=== PATIENT | female | born 1995 | race Hispanic/Latino ===

== ENCOUNTER 2019-09-22 11:58 | Emergency (ER) | payer OTHER ==
[2019-09-22 13:07] LABS: RAPID GROUP A STREP NEGATIVE (NEGATIVE)
== END 2019-09-22 16:05 | disposition home or self-care (01) ==
LOC: EDH 11:58
DX: J18.9 Pneumonia, unspecified organism (principal); Z88.8 Allergy status to other drugs, medicaments and biological substances
CPT/HCPCS: 71046; 81025; 87804; 87880

== ENCOUNTER 2019-09-23 11:52 | Inpatient (IN) | payer OTHER ==
[~2019-09-23] VITALS: Ht 162.6 cm; Wt 80.9 kg
[2019-09-23 12:36] LABS: BASOPHILS % (AUTO) 0.3 % (0.0-5.0); EOSINOPHILS % (AUTO) 0.2 % (0.0-8.0); HEMATOCRIT 36.2 % (36-48); LYMPHOCYTES % (AUTO) 7.4 % (21.0-51.0); MEAN CORPUSCULAR HEMOGLOBIN 28.7 pg (27.0-33.0); MEAN CORPUSCULAR HGB CONC 35.4 g/dL (32.0-36.0); MEAN CORPUSCULAR VOLUME 81.2 fL (79-99); MONOCYTES % (AUTO) 3.7 % (3.0-13.0); NEUTROPHILS % (AUTO) 87.4 % (40.0-77.0); PLATELET COUNT (AUTO) 41 K/uL (130-400); RED BLOOD CELL COUNT(AUTO) 4.46 MIL/uL (4.00-5.50); RED CELL DISTRIBUTION WIDTH 12.6 % (11.0-15.5); WHITE BLOOD COUNT (AUTO) 17.4 K/uL (4.8-10.8)
[2019-09-23 12:39] LABS: APPEARANCE,URINE Turbid (CLEAR); BILIRUBIN,URINE Moderate (NEGATIVE); COLOR,URINE Dark Yellow (YELLOW); GLUCOSE, URINE (UA) 500 mg/dL (NEGATIVE); KETONES,URINE Negative (NEGATIVE); LEUKOCYTE ESTERASE ,URINE Small (NEGATIVE); NITRATE,URINE Negative (NEGATIVE); OCCULT BLOOD,URINE Moderate (NEGATIVE); PROTEIN,URINE 300 mg/dL (NEGATIVE)
[2019-09-23 12:48] LABS: AMPHET/METH SCREEN,URINE NEGATIVE (NEGATIVE); BARBITURATE SCREEN, URINE NEGATIVE (NEGATIVE); BENZODIAZEPINES SCREEN,URINE NEGATIVE (NEGATIVE); CANNABINOID SCREEN,URINE NEGATIVE (NEGATIVE); COCAINE SCREEN,URINE NEGATIVE (NEGATIVE); OPIATE SCREEN,URINE NEGATIVE (NEGATIVE); PHENCYCLIDINE SCREEN,URINE NEGATIVE (NEGATIVE)
[2019-09-23 12:49] LABS: INR 1.02 (0.85-1.15); PARTIAL THROMBOPLASTIN TIME 36.5 SEC (26.3-35.5)
[2019-09-23 12:52] LABS: ALANINE AMINOTRANSFERASE 122 U/L (12-78); ALBUMIN 2.5 g/dL (3.5-5.0); ASPARTATE AMINOTRANSFERASE 101 U/L (10-37); BILIRUBIN,TOTAL 4.8 mg/dL (0.2-1.0); CARBON DIOXIDE 18 mmol/L (21-32); CREATINE KINASE, TOTAL 117 U/L (21-232); GLOMERULAR FILTR. RATE CALC 6 mL/min (>60); GLUCOSE,RANDOM 140 mg/dL (70-105); LIPASE 184 U/L (114-286); POTASSIUM 3.7 mmol/L (3.5-5.1); SODIUM SERUM 130 mmol/L (136-145); TOTAL PROTEIN, SERUM 6.9 g/dL (6.0-8.3)
[2019-09-23 12:53] LABS: ALCOHOL, BLOOD < 3 mg/dL (0-10)
[2019-09-23 12:55] LABS: CHLORIDE 89 mmol/L (101-111); CREATININE 8.7 mg/dL (0.5-1.5); UREA NITROGEN, BLOOD 98 mg/dL (7-18)
[2019-09-23 13:16] LABS: PLATELET MORPHOLOGY COMMENT MARKED DECREASE
[2019-09-23 13:19] LABS: BACTERIA,URINE Moderate /HPF (None Seen); WBC,URINE 26-50 /HPF (0-1)
[2019-09-23 13:20] LABS: AMORPHOUS SEDIMENT,UR Moderate /LPF (None Seen); TRANSITIONAL EPI CELLS,URINE Moderate /HPF (None Seen)
[2019-09-23 13:22] LABS: ALBUMIN 2.2 g/dL (3.5-5.0); BILIRUBIN,TOTAL 4.4 mg/dL (0.2-1.0); POTASSIUM 3.5 mmol/L (3.5-5.1); TOTAL PROTEIN, SERUM 6.2 g/dL (6.0-8.3)
[2019-09-23 13:25] LABS: CREATININE 8.3 mg/dL (0.5-1.5)
[2019-09-23 13:26] LABS: BASOPHILS % (AUTO) 0.2 % (0.0-5.0); EOSINOPHILS % (AUTO) 0.3 % (0.0-8.0); LYMPHOCYTES % (AUTO) 6.5 % (21.0-51.0); MEAN CORPUSCULAR HEMOGLOBIN 28.8 pg (27.0-33.0); MEAN CORPUSCULAR HGB CONC 35.2 g/dL (32.0-36.0); MEAN CORPUSCULAR VOLUME 81.9 fL (79-99); MONOCYTES % (AUTO) 2.6 % (3.0-13.0); NEUTROPHILS % (AUTO) 89.5 % (40.0-77.0); PLATELET COUNT (AUTO) 41 K/uL (130-400); RED BLOOD CELL COUNT(AUTO) 4.03 MIL/uL (4.00-5.50); RED CELL DISTRIBUTION WIDTH 12.7 % (11.0-15.5); WHITE BLOOD COUNT (AUTO) 14.1 K/uL (4.8-10.8)
[2019-09-23] MEDS ORDERED: CEFTRIAXONE SODIUM 2 GM VIAL ONE (14:17)
[2019-09-23] MEDS ORDERED: SODIUM CHLORIDE 0.9% 100 ML IV ONE (14:17)
[2019-09-23] MEDS ORDERED: LACTULOSE 20 GM/30 ML UDCUP PO PRN (17:00)
[2019-09-23] MEDS: AZITHROMYCIN 500MG+NS 250ML 250 ML IV SCH (17:00)
[2019-09-23] MEDS ORDERED: ACETAMINOPHEN 325 MG TAB PO PRN (17:00)
[2019-09-23] MEDS ORDERED: ONDANSETRON HCL 4 MG/2 ML VIAL ONE (17:25)
[2019-09-23 17:42] LABS: ALBUMIN 2.3 g/dL (3.5-5.0); BILIRUBIN,TOTAL 4.5 mg/dL (0.2-1.0); POTASSIUM 3.6 mmol/L (3.5-5.1); TOTAL PROTEIN, SERUM 6.5 g/dL (6.0-8.3)
[2019-09-23 17:45] LABS: CREATININE 8.4 mg/dL (0.5-1.5)
[2019-09-23] MEDS: CEFTRIAXONE SODIUM 2 GM VIAL IVP SCH (18:00)
[2019-09-23] MEDS ORDERED: VANCOMYCIN PROTOCOL PER PHARMACY IV SCH (18:00)
[2019-09-23] MEDS ORDERED: COMPOUND IV MISC 1 EACH IVSOLN MISC PRN (18:15)
[2019-09-23] MEDS ORDERED: COMPOUND IV REFRIGERATED 1 EACH IVSOLN MISC PRN (18:30)
[2019-09-23] MEDS ORDERED: VANCOMYCIN 1.25 GM in SODIUM CHLORIDE 0.9% 250 ML IV SCH (20:00)
[2019-09-23 20:16] VITALS: BP 120/65
[2019-09-23] MEDS ORDERED: FAMOTIDINE/PF 20 MG/2 ML VIAL IV SCH (21:00)
[2019-09-23] MEDS: SODIUM CHLORIDE 0.9% 1000ML 1,000 ML IV SCH (21:23)
[2019-09-23] MEDS: ONDANSETRON HCL 4 MG/2 ML VIAL IV PRN (21:24)
[2019-09-23] MEDS: ACYCLOVIR SODIUM IV SCH (21:24)
[2019-09-23] MEDS: SODIUM CHLORIDE 0.9% IV SCH (21:24)
[2019-09-23] MEDS ORDERED: ACYCLOVIR SODIUM 1000 MG VIAL IV SCH (22:00)
[2019-09-23] MEDS ORDERED: SODIUM CHLORIDE 0.9% 500ML 500 ML IV ONE (23:15)
[2019-09-24] VITALS (19 sets, daily range): BP systolic 94–121; BP diastolic 42–79
[2019-09-24] MEDS: SODIUM CHLORIDE 0.9% 1000ML 1,000 ML IV SCH ×2 (02:49→10:23)
[2019-09-24 06:25] LABS: CRP QUANTITATIVE 137.2 mg/L (0.00-9.0)
[2019-09-24] MEDS: CEFTRIAXONE SODIUM 2 GM VIAL IVP SCH ×2 (07:01→20:55)
[2019-09-24] MEDS: ACYCLOVIR SODIUM IV SCH ×2 (07:01→13:21)
[2019-09-24] MEDS: SODIUM CHLORIDE 0.9% IV SCH ×2 (07:01→13:21)
--- NOTE | 2019-09-24 07:30 | NUR ---
GURMEET LEVI NP NOTIFIED OF PATIENT'S LACTIC ACID AND D DIMER RESULTS. SHE WAS MADE AWARE THAT PATIENT WILL BE TRANSFERRED TO DAY PATIENT ICU.
--- NOTE | 2019-09-24 07:37 | NUR ---
REPORT FOR TRANSFER REPORT GIVEN TO NINA AKINS AT THIS TIME. PATIENT WILL BE TRANSFERRED TO [facility] PATIENT ICU 16. Addendum: 09/24/19 at 0800 by HOLLY RANKIN RN PATIENT IS IN STABLE CONDITION, HR 107, BP 121/65, O2 SAT 96% ON ROOM AIR. PATIENT CURRENTLY ON THE PHONE WITH HER GIRLFRIEND. ALERT AND ORIENTED X3, SITUATIONALLY CONFUSED. TAKEN DOWN TO (DAY PATIENT) ICU AT THIS TIME WITH SITTER AND CHARGE NURSE.
[2019-09-24] MEDS: FAMOTIDINE/PF 20 MG/2 ML VIAL IV SCH (08:26)
[2019-09-24] MEDS ORDERED: CEFTRIAXONE SODIUM 1 GM IV SCH (09:00)
[2019-09-24 10:51] LABS: HEMATOCRIT 31.5 % (36-48); MEAN CORPUSCULAR HEMOGLOBIN 28.1 pg (27.0-33.0); MEAN CORPUSCULAR VOLUME 82.7 fL (79-99); PLATELET COUNT (AUTO) 56 K/uL (130-400); RED BLOOD CELL COUNT(AUTO) 3.81 MIL/uL (4.00-5.50); RED CELL DISTRIBUTION WIDTH 13.3 % (11.0-15.5); WHITE BLOOD COUNT (AUTO) 13.2 K/uL (4.8-10.8)
[2019-09-24 11:20] LABS: LYMPHOCYTES % (MANUAL) 4 % (22-44); MONOCYTES % (MANUAL) 2 % (2-9); PLATELET MORPHOLOGY COMMENT DECREASED; REACTIVE LYMPHOCYTES 2 % (0-0); SEGMENTED NEUTROPHILS % 92 % (40-70)
[2019-09-24 11:29] LABS: ALBUMIN 2.3 g/dL (3.5-5.0); BILIRUBIN,TOTAL 4.9 mg/dL (0.2-1.0); POTASSIUM 3.7 mmol/L (3.5-5.1); TOTAL PROTEIN, SERUM 6.1 g/dL (6.0-8.3)
[2019-09-24 11:34] LABS: CREATININE 8.7 mg/dL (0.5-1.5)
[2019-09-24] MEDS ORDERED: DEXMEDETOMIDINE HCL 200 MCG in SODIUM CHLORIDE 0.9% 50 ML IV SCH (16:00)
[2019-09-24] MEDS ORDERED: RENAL DOSE IV PRN (17:00)
[2019-09-24] MEDS: AZITHROMYCIN 500MG+NS 250ML 250 ML IV SCH (17:06)
[2019-09-24 17:35] LABS: INR 1.09 (0.85-1.15); PARTIAL THROMBOPLASTIN TIME 33.7 SEC (26.3-35.5); PROTHROMBIN TIME 11.7 SEC (9.6-11.6)
--- NOTE | 2019-09-24 18:08 | NUR ---
CALL TO MOTHER ON FACE SHEET NO ANSWER PATIENT LETHAGIC AND CONFUSED EARLIER WHEN CM IN ICU FOR IA. CM WILL CONTINUE TO FOLLOW UP Addendum: 09/24/19 at 1809 by PERRY HSU RN CM Amended: Links added.
[2019-09-24] MEDS: SODIUM BICARBONATE 650 MG TAB PO SCH (20:56)
[2019-09-24] MEDS: DOXYCYCLINE 100MG+NS 250ML 250 ML IV SCH (20:56)
[2019-09-25] VITALS (25 sets, daily range): BP systolic 85–113; BP diastolic 51–71
[2019-09-25 03:50] LABS: HEMATOCRIT 34.3 % (36-48); MEAN CORPUSCULAR HEMOGLOBIN 28.6 pg (27.0-33.0); MEAN CORPUSCULAR HGB CONC 34.7 g/dL (32.0-36.0); MEAN CORPUSCULAR VOLUME 82.5 fL (79-99); RED BLOOD CELL COUNT(AUTO) 4.16 MIL/uL (4.00-5.50); RED CELL DISTRIBUTION WIDTH 13.2 % (11.0-15.5); WHITE BLOOD COUNT (AUTO) 11.9 K/uL (4.8-10.8)
[2019-09-25 03:51] LABS: APPEARANCE,URINE Clear (CLEAR); BILIRUBIN,URINE Negative (NEGATIVE); COLOR,URINE Yellow (YELLOW); GLUCOSE, URINE (UA) Negative (NEGATIVE); KETONES,URINE Negative (NEGATIVE); LEUKOCYTE ESTERASE ,URINE Trace (NEGATIVE); NITRATE,URINE Negative (NEGATIVE); OCCULT BLOOD,URINE Moderate (NEGATIVE); PH,URINE 5.5 (5.0-8.0); PROTEIN,URINE Trace mg/dL (NEGATIVE)
[2019-09-25 04:08] LABS: ALBUMIN 2.2 g/dL (3.5-5.0); BILIRUBIN,DIRECT 2.8 mg/dL (0.0-0.3); BILIRUBIN,TOTAL 3.7 mg/dL (0.2-1.0); MAGNESIUM 2.8 mg/dL (1.80-2.40); PHOSPHORUS 5.8 mg/dL (2.5-4.9); POTASSIUM 3.9 mmol/L (3.5-5.1); TOTAL PROTEIN, SERUM 6.9 g/dL (6.0-8.3); URIC ACID 12.2 mg/dL (2.6-7.2)
[2019-09-25 04:09] LABS: BACTERIA,URINE Few /HPF (None Seen); MUCUS,URINE Rare LPF (None Seen); SQUAMOUS EPITHELIAL CELL,UR Few /HPF (0-2)
[2019-09-25] MEDS: SODIUM CHLORIDE 0.9% 1000ML 1,000 ML IV SCH ×2 (06:29→21:41)
[2019-09-25] MEDS: CEFTRIAXONE SODIUM 2 GM VIAL IVP SCH ×2 (06:29→17:48)
[2019-09-25] MEDS ORDERED: RENAL DOSE IV PRN (11:00)
[2019-09-25] MEDS: SODIUM BICARBONATE 650 MG TAB PO SCH ×2 (11:06→21:18)
[2019-09-25] MEDS: FAMOTIDINE/PF 20 MG/2 ML VIAL IV SCH (11:07)
[2019-09-25] MEDS: DOXYCYCLINE 100MG+NS 250ML 250 ML IV SCH ×2 (11:08→21:18)
[2019-09-25] MEDS: THIAMINE HCL 100 MG/ML 2ML VIAL IVP SCH (11:10)
[2019-09-25] MEDS ORDERED: COMPOUND IV MISC 1 EACH IVSOLN MISC PRN (11:15)
[2019-09-25] MEDS: LEVETIRACETAM 250 MG in SODIUM CHLORIDE 0.9% 100 ML IV SCH (13:20)
[2019-09-25] MEDS ORDERED: ACYCLOVIR SODIUM IV SCH (14:00)
[2019-09-25] MEDS ORDERED: SODIUM CHLORIDE 0.9% IV SCH (14:00)
--- NOTE | 2019-09-25 15:15 | NUR ---
Mental status Dr. Jeevan Pisano at bedside. Pt currently not following commands, making incomprehensible sounds, no words. Pt awake, eyes open, withdraws from pain.
[2019-09-25 15:19] LABS: ABG BASE EXCESS -8.5 mmol/L (-2.0-3.0); ABG HCO3 15.8 mmol/L (21.0-28.0); ABG OXYGEN SATURATION 97.3 % (95.0-99.0); ABG PCO2 30 mmHg (32-45)
--- NOTE | 2019-09-25 15:28 | NUR ---
JOHANNA PLAN VISITED WITH PATIENT. STILL CONFUSED. CALLED MOTHER NO ANSWER. HAD SPOKEN TO MOTHER EARLIER. MAEGAN WILL CONTINUE TO FOLLOW. Addendum: 09/25/19 at 1530 by IZABELLA FAIRCHILD RN CM Amended: Links added.
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
--- NOTE | 2019-09-25 16:15 | NUR ---
Decision to transfer Dr. Jeevan Pisano in consultation with Dr. Pyle agree to transfer pt to [facility] for likely need for treatments not available at [facility], including but not limited to plasma pheuresis. Pt's mother in agreement with transfer. Phone consent for transfer obtained with witness by two RNs. mirror fabrication supervisor notified.
[2019-09-25] MEDS: AZITHROMYCIN 500MG+NS 250ML 250 ML IV SCH (17:48)
--- NOTE | 2019-09-25 19:18 | NUR ---
1630 transfer request to [facility] for plasmapharesis 1652 information sent to intake nurse Latoya at [facility] will call back. 173 [facility] intake nurse call back with a denial due to full to capacity. primary nurse made aware. 1824 [facility] latoya call back states working on a bed for incoming shift. primary nurse notified. 1825 Latoya call back with an acceptance and bed assignment room icu 6 and accepting md Hamzah herrera and medical office administrator Lewis ferguson primary nurse to call [phone] . [id number] face sheet requested and a hold on transfer now need finacial approval hold transfer for now awaiting for call back. primary nurse notified and incoming hs made aware. Mika caputo
--- NOTE | 2019-09-25 20:55 | NUR ---
REPORT REPORT RECEIVED FROM LORIE AKINS
--- NOTE | 2019-09-25 21:00 | NUR ---
ASSESSMENT PT ORIENTED TO SELF ONLY. SPEECH IS GARBLED AND DELAYED. FOLLOWS SIMPLE COMMANDS SUCH MOVE YOUR TOES AND SQUEEZE MY FINGERS. ASSESSMENT COMPLETED, SEE FLOW SHEET.
--- NOTE | 2019-09-25 21:10 | NUR ---
REPORT PATIENT TRANSFERRED TO ROOM DP 1A FROM DP-16. PATIENT AWAKE AND ALERT. VS WNL. BREATHING REGULAR AND UNLABORED. SITTER AT THE BEDSIDE. REPORT GIVEN TO MARIANELA AKINS.
--- NOTE | 2019-09-25 22:00 | NUR ---
CALLED [facility] SPOKE WITH MARTIN SHE STATES SHE IS STILL PENDING APPROVAL FOR TRANSFER. HER IUSS ACOUSTIC ANALYST WAS STILL IN A MEETING
[2019-09-26] VITALS (19 sets, daily range): BP systolic 93–115; BP diastolic 56–79
[2019-09-26] MEDS: LEVETIRACETAM 250 MG in SODIUM CHLORIDE 0.9% 100 ML IV SCH ×2 (00:19→12:21)
[2019-09-26] MEDS ORDERED: LORAZEPAM 2 MG/ML 1 ML VIAL IVP PRN (02:19)
--- NOTE | 2019-09-26 03:30 | NUR ---
ASSESSMENT PT REMAINS ORIENTED TO SELF ONLY. SPEECH IS GARBLED AND DELAYED. FOLLOWS SIMPLE COMMANDS SUCH MOVE YOUR TOES AND SQUEEZE MY FINGERS. ASSESSMENT COMPLETED, SEE FLOW SHEET.
[2019-09-26 04:12] LABS: BASOPHILS % (AUTO) 0.5 % (0.0-5.0); EOSINOPHILS % (AUTO) 0.8 % (0.0-8.0); HEMATOCRIT 30.4 % (36-48); LYMPHOCYTES % (AUTO) 17.1 % (21.0-51.0); MEAN CORPUSCULAR HGB CONC 34.5 g/dL (32.0-36.0); MEAN CORPUSCULAR VOLUME 81.1 fL (79-99); MONOCYTES % (AUTO) 11.5 % (3.0-13.0); PLATELET COUNT (AUTO) 91 K/uL (130-400); RED BLOOD CELL COUNT(AUTO) 3.75 MIL/uL (4.00-5.50); RED CELL DISTRIBUTION WIDTH 13.2 % (11.0-15.5); WHITE BLOOD COUNT (AUTO) 10.1 K/uL (4.8-10.8)
[2019-09-26 04:43] LABS: ALBUMIN 2.2 g/dL (3.5-5.0); BILIRUBIN,TOTAL 1.6 mg/dL (0.2-1.0); CREATININE 3.7 mg/dL (0.5-1.5); MAGNESIUM 2.5 mg/dL (1.80-2.40); POTASSIUM 3.6 mmol/L (3.5-5.1); TOTAL PROTEIN, SERUM 6.8 g/dL (6.0-8.3)
[2019-09-26] MEDS: SODIUM CHLORIDE 0.9% 1000ML 1,000 ML IV SCH (04:49)
--- NOTE | 2019-09-26 05:00 | NUR ---
CALLED [facility] AND WAS INFORMED TRANSFER APPROVAL WAS STILL PENDING
[2019-09-26 05:04] LABS: INR 1.19 (0.85-1.15); PROTHROMBIN TIME 12.8 SEC (9.6-11.6)
[2019-09-26] MEDS: CEFTRIAXONE SODIUM 2 GM VIAL IVP SCH ×2 (05:35→17:58)
--- NOTE | 2019-09-26 07:33 | NUR ---
PT IS AWAKE AND TALKING- C/O THIRST AND HUNGER. LABS IMPROVED. MENTAL STATUS IMPROVED
[2019-09-26] MEDS: DOXYCYCLINE 100MG+NS 250ML 250 ML IV SCH ×2 (09:15→20:44)
[2019-09-26] MEDS: FAMOTIDINE/PF 20 MG/2 ML VIAL IV SCH (09:15)
[2019-09-26] MEDS: SODIUM BICARBONATE 650 MG TAB PO SCH ×2 (09:15→20:45)
[2019-09-26] MEDS: THIAMINE HCL 100 MG/ML 2ML VIAL IVP SCH (09:15)
[2019-09-26 10:10] LABS: HEPATITIS A ANTIBODY IGM Negative (Negative); HEPATITIS B CORE IGM Negative (Negative); HEPATITIS Bs ANTIGEN SCREEN P Negative (Negative)
--- NOTE | 2019-09-26 11:15 | NUR ---
DC PLAN VISITED WITH PATIENT. PATIENT CONFUSED. CALLED MOTHER. LEFT MESSAGE CALLED BACK. PATIENT LIVES WITH GIRL FRIEND IN [place]. NO SERVICES OR DME'S. PLAN TO RETURN TO HOME EITHER WITH GIRL FRIEND OR MOTHER. Addendum: 09/26/19 at 1116 by IZABELLA FAIRCHILD RN CM Amended: Links added.
[2019-09-26 12:13] LABS: INR 1.2 (0.85-1.15); PARTIAL THROMBOPLASTIN TIME 32.2 SEC (26.3-35.5); PROTHROMBIN TIME 12.9 SEC (9.6-11.6)
[2019-09-26] MEDS: 1/2 NORMAL SALINE 1,000 ML IV SCH (12:21)
--- NOTE | 2019-09-26 12:55 | NUR ---
MICHAEL GALDAMEZ [employer] ARTISTIC DIRECTOR COORDINATED WITH NURSE MONTILLA. Pt CURRENTLY NPO PENDING PROCEDURE. HOLD EVALUATION. [employer] ARTISTIC DIRECTOR WILL FOLLOW Pt FOR SKILLED SPEECH THERAPY EVALUATION TOMORROW. Addendum: 09/26/[address] YESICA HAY Amended: Links added.
--- NOTE | 2019-09-26 15:02 | NUR ---
PENDING LUMBAR PUNCTURE-I HAVE NOTIFIED [facility] DEPT.. DR JACOME MADE ROUNDS AND WAS GIVEN AN UPDATE
[2019-09-26] MEDS: AZITHROMYCIN 500MG+NS 250ML 250 ML IV SCH (17:55)
--- NOTE | 2019-09-26 18:17 | NUR ---
[facility] HAS POSTPONED LUMBAR PUNCTURE FOR NOW- WILL REEVALUATE LAB IN AM
--- NOTE | 2019-09-26 19:33 | NUR ---
HAND OFF REPORT GIVEN TO MARIANELA AKINS
--- NOTE | 2019-09-26 20:00 | NUR ---
ASSESSMENT PT RESTING QUIETLY IN BED, ORIENTED TO SELF ONLY. PT RE-ORIENTED PRN. REQUESTING WATER. IV FLUIDS INFUSING WITHOUT DIFFICULTLY. PT 1:1. SPEECH IS DELAYED. ASSESSMENT COMPLETED, SEE FLOW SHEET.
--- NOTE | 2019-09-26 22:30 | NUR ---
REPORT REPORT CALLED TO DAVID AKINS.
--- NOTE | 2019-09-26 22:30 | NUR ---
DR DEISY OLIVAS CALLED REQUESTING PT STATUS U-DATE. PT U-DATE GIVE, MADE AWARE OF PENDING TRANSFER TO ROOM 319.
--- NOTE | 2019-09-26 22:49 | NUR ---
TRANSFER PT TRANSFER TO ROM 316. S/O JESUS MADE AWARE OF TRANSFER TO ROOM 316. PERSONAL BELONGINGS INCLUDING CELL PHONE WITH PT.
--- NOTE | 2019-09-26 23:00 | NUR ---
TRANSFER PATIENT RECEIVED FROM ICU DAY PATIENT INTO ROOM 316, REPORT RECEIVED FROM MARIANELA AKINS. PATIENT AWAKE, ALERT TO NAME AND VERBALLY RESPONSIVE. NO C/O PAIN OR DISCOMFORT AT THIS TIME. RALPH CATHETER IN PLACE AND DRAINING CLEAR YELLOW URINE. IV CATHETER 20G TO RIGHT WRIST INFUSING 1/2 NS, NO REDNESS OR SWELLING OBSERVED. SEIZURE PRECAUTIONS STARTED. BED IN LOWEST POSITION, CALL HERR WITHIN REACH.
[2019-09-27 00:04] VITALS: BP 109/71
[2019-09-27] MEDS: LEVETIRACETAM 250 MG in SODIUM CHLORIDE 0.9% 100 ML IV SCH ×3 (00:38→23:47)
[2019-09-27] MEDS: 1/2 NORMAL SALINE 1,000 ML IV SCH ×3 (00:39→12:26)
[2019-09-27 05:08] VITALS: BP 105/63
[2019-09-27 05:37] LABS: HEMATOCRIT 29.4 % (36-48); MEAN CORPUSCULAR VOLUME 82.4 fL (79-99); PLATELET COUNT (AUTO) 169 K/uL (130-400); RED BLOOD CELL COUNT(AUTO) 3.57 MIL/uL (4.00-5.50); RED CELL DISTRIBUTION WIDTH 13.4 % (11.0-15.5); WHITE BLOOD COUNT (AUTO) 9.9 K/uL (4.8-10.8)
[2019-09-27 05:47] LABS: ALBUMIN 2.1 g/dL (3.5-5.0); BILIRUBIN,TOTAL 1.1 mg/dL (0.2-1.0); CREATININE 1.7 mg/dL (0.5-1.5); MAGNESIUM 1.4 mg/dL (1.80-2.40); PHOSPHORUS 3.2 mg/dL (2.5-4.9); POTASSIUM 3.6 mmol/L (3.5-5.1); TOTAL PROTEIN, SERUM 6.7 g/dL (6.0-8.3)
[2019-09-27] MEDS: CEFTRIAXONE SODIUM 2 GM VIAL IVP SCH ×2 (06:14→17:10)
[2019-09-27 07:15] VITALS: BP 107/68
[2019-09-27 07:33] LABS: INR 1.22 (0.85-1.15); PARTIAL THROMBOPLASTIN TIME 32.2 SEC (26.3-35.5); PROTHROMBIN TIME 13.1 SEC (9.6-11.6)
[2019-09-27 07:46] LABS: BASOPHILS % (MANUAL) 1 % (0-2); LYMPHOCYTES % (MANUAL) 8 % (22-44); MAN.DIFF COMMENT-IMPRESSION MANUAL DIFFERENTIAL; MONOCYTES % (MANUAL) 7 % (2-9); PLATELET MORPHOLOGY COMMENT ADEQUATE; SEGMENTED NEUTROPHILS % 84 % (40-70)
--- NOTE | 2019-09-27 09:15 | NUR ---
DYSPHAGIA EVAL COMPLETED. NO S/S OF ASPIRATION AT THIS TIME. RECOMMEND REGULAR SOLIDS, THIN LIQUIDS TOLERATED WITH PILLS WHOLE WITH LIQUIDS. TIRE CURER EDUCATED Pt ON RISKS AND CONSEQUENCES OF ASPIRATION. TIRE CURER COORDINATED CARE AND RECOMMENDATIONS WITH NURSE CELESTE. Addendum: 09/27/[address] BHARTI Amended: Links added.
[2019-09-27] MEDS: FAMOTIDINE/PF 20 MG/2 ML VIAL IV SCH (09:35)
[2019-09-27] MEDS: SODIUM BICARBONATE 650 MG TAB PO SCH ×2 (09:35→19:38)
[2019-09-27] MEDS: THIAMINE HCL 100 MG/ML 2ML VIAL IVP SCH (09:35)
[2019-09-27] MEDS: MAGNESIUM 2GM PREMIX 50ML 50 ML IV SCH ×2 (09:36→14:33)
[2019-09-27] MEDS: DOXYCYCLINE 100MG+NS 250ML 250 ML IV SCH ×2 (09:55→19:38)
--- NOTE | 2019-09-27 10:00 | NUR ---
CALLED AND SPOKE WITH ALFREDA ESCALONA RE: LUMBAR PUNCTURE AND NOTIFIED OF LP WITH PLATELET RESULTS. RQD=419 INFORMED BUN/CREAT IMPROVED WELL. HE ASKED IF PT STILL NEEDED LP AND INFORMED HIM LP STILL NEEDED DUE TO LABS FROM LUMBAR PUNCTURE DUE/ORDERED. INFORMED HIM PT PATIENT TO FIND OUT WHAT WAS GOING. ALFREDA ESCALONA VERBALIZED UNDERSTANDING.
[2019-09-27 10:41] VITALS: BP 104/62
[2019-09-27] MEDS ORDERED: PHARMACY COMMUNICATION MISC SCH (11:00)
--- NOTE | 2019-09-27 15:00 | NUR ---
RD NOTIFICATION Pt admitted with sepsis, seizures. Pt NPO x4 days, pending procedure. Altered nutrition lab values. Obesity Class I (BMI 30.6). LBM 09/23/19. When medically feasible, recommend advance diet as tolerated to Regular diet order. RD to continue to monitor. Please notify as additional nutrition concerns arise. Thank you. Addendum: 09/27/19 at [address] RD Amended: Links added.
[2019-09-27 16:27] VITALS: BP 108/69
[2019-09-27] MEDS: AZITHROMYCIN 500MG+NS 250ML 250 ML IV SCH (17:10)
--- NOTE | 2019-09-27 17:23 | NUR ---
CALLED AND SPOKE WITH ALFREDA ESCALONA RE: LUMBAR PUNCTURE ASKED IF HE WOULD DO LUMBAR PUNCTURE THIS EVENING OR TOMORROW. POLA SAID HE WOULD DO LUMBAR PUNCTURE TOMORROW. NOTIFIED SPOKE WITH DR. BOYKIN,ORDERING , AND STILL WANTS LUMBAR PUNCTURE TO BE DONE.
[2019-09-27 20:00] VITALS: BP 118/78
[2019-09-28] VITALS (7 sets, daily range): BP systolic 108–124; BP diastolic 62–81
[2019-09-28] MEDS: 1/2 NORMAL SALINE 1,000 ML IV SCH ×3 (02:18→22:18)
[2019-09-28 05:19] LABS: BASOPHILS % (AUTO) 0.6 % (0.0-5.0); EOSINOPHILS % (AUTO) 1.6 % (0.0-8.0); HEMATOCRIT 29.5 % (36-48); LYMPHOCYTES % (AUTO) 29.7 % (21.0-51.0); MEAN CORPUSCULAR HGB CONC 33.2 g/dL (32.0-36.0); MEAN CORPUSCULAR VOLUME 84.3 fL (79-99); MONOCYTES % (AUTO) 9.7 % (3.0-13.0); NEUTROPHILS % (AUTO) 56.5 % (40.0-77.0); PLATELET COUNT (AUTO) 227 K/uL (130-400); RED CELL DISTRIBUTION WIDTH 13.8 % (11.0-15.5); WHITE BLOOD COUNT (AUTO) 10.6 K/uL (4.8-10.8)
[2019-09-28] MEDS: CEFTRIAXONE SODIUM 2 GM VIAL IVP SCH ×2 (05:20→18:02)
[2019-09-28 05:36] LABS: MAGNESIUM 1.6 mg/dL (1.80-2.40); POTASSIUM 3.4 mmol/L (3.5-5.1)
[2019-09-28] MEDS: MAGNESIUM 2GM PREMIX 50ML 50 ML IV SCH (06:07)
[2019-09-28] MEDS ORDERED: POTASSIUM CHLORIDE 20 MEQ ERTAB PO SCH (07:00)
[2019-09-28] MEDS: SODIUM BICARBONATE 650 MG TAB PO SCH ×2 (08:57→20:10)
[2019-09-28] MEDS: THIAMINE HCL 100 MG/ML 2ML VIAL IVP SCH (08:57)
[2019-09-28] MEDS: FAMOTIDINE/PF 20 MG/2 ML VIAL IV SCH (08:57)
[2019-09-28] MEDS: DOXYCYCLINE 100MG+NS 250ML 250 ML IV SCH ×2 (08:58→20:10)
[2019-09-28] MEDS: LEVETIRACETAM 250 MG in SODIUM CHLORIDE 0.9% 100 ML IV SCH (12:23)
[2019-09-28] MEDS: AZITHROMYCIN 500MG+NS 250ML 250 ML IV SCH (16:15)
[2019-09-29 03:00] VITALS: BP 96/54
[2019-09-29 04:46] LABS: BASOPHILS % (AUTO) 0.7 % (0.0-5.0); EOSINOPHILS % (AUTO) 1.3 % (0.0-8.0); HEMATOCRIT 29.3 % (36-48); LYMPHOCYTES % (AUTO) 35.7 % (21.0-51.0); MEAN CORPUSCULAR HEMOGLOBIN 28.7 pg (27.0-33.0); MEAN CORPUSCULAR HGB CONC 33.4 g/dL (32.0-36.0); MEAN CORPUSCULAR VOLUME 85.7 fL (79-99); MONOCYTES % (AUTO) 9.4 % (3.0-13.0); NEUTROPHILS % (AUTO) 51.5 % (40.0-77.0); PLATELET COUNT (AUTO) 274 K/uL (130-400); RED BLOOD CELL COUNT(AUTO) 3.42 MIL/uL (4.00-5.50); RED CELL DISTRIBUTION WIDTH 13.6 % (11.0-15.5); WHITE BLOOD COUNT (AUTO) 10.4 K/uL (4.8-10.8)
[2019-09-29 05:02] LABS: CREATININE 0.9 mg/dL (0.5-1.5); MAGNESIUM 1.2 mg/dL (1.80-2.40); PHOSPHORUS 2.8 mg/dL (2.5-4.9); POTASSIUM 3.5 mmol/L (3.5-5.1)
[2019-09-29] MEDS: CEFTRIAXONE SODIUM 2 GM VIAL IVP SCH (06:39)
[2019-09-29 07:24] VITALS: BP 103/61
[2019-09-29] MEDS: 1/2 NORMAL SALINE 1,000 ML IV SCH ×2 (08:18→19:07)
[2019-09-29] MEDS: ONDANSETRON HCL 4 MG/2 ML VIAL IV PRN (09:29)
[2019-09-29] MEDS: FAMOTIDINE/PF 20 MG/2 ML VIAL IV SCH (09:29)
[2019-09-29] MEDS: SODIUM BICARBONATE 650 MG TAB PO SCH ×2 (09:30→21:15)
[2019-09-29] MEDS: THIAMINE HCL 100 MG/ML 2ML VIAL IVP SCH (09:30)
[2019-09-29] MEDS: DOXYCYCLINE 100MG+NS 250ML 250 ML IV SCH ×2 (09:30→21:15)
[2019-09-29 10:55] VITALS: BP 115/78
[2019-09-29] MEDS: LEVETIRACETAM 250 MG in SODIUM CHLORIDE 0.9% 100 ML IV SCH ×3 (12:22)
[2019-09-29] MEDS: MAGNESIUM 2GM PREMIX 50ML 50 ML IV SCH (12:51)
--- NOTE | 2019-09-29 15:33 | NUR ---
RD FOLLOW UP Pt diet advanced to Heart Healthy Diet order. Pt with poor PO intake at 25%. Recommend to continue Heart Healthy Diet order Recommend to add 30mL ProMod TID RD to continue to monitor PO status and Pt body weight. Please notify as additional nutrition concerns arise. Thank you. Addendum: 09/29/19 at [address] Amended: Links added.
[2019-09-29 16:00] VITALS: BP 108/73
[2019-09-29 19:46] VITALS: BP 106/65
[2019-09-29 20:07] LABS: MAGNESIUM 1.9 mg/dL (1.80-2.40); POTASSIUM 3.4 mmol/L (3.5-5.1)
[2019-09-30] VITALS: BP 115/67
[2019-09-30] MEDS: LEVETIRACETAM 250 MG in SODIUM CHLORIDE 0.9% 100 ML IV SCH (00:24)
[2019-09-30 04:00] VITALS: BP 121/66
[2019-09-30] MEDS: 1/2 NORMAL SALINE 1,000 ML IV SCH (05:24)
[2019-09-30 06:16] LABS: HEMATOCRIT 29.9 % (36-48); MEAN CORPUSCULAR HEMOGLOBIN 27.4 pg (27.0-33.0); MEAN CORPUSCULAR HGB CONC 32.4 g/dL (32.0-36.0); MEAN CORPUSCULAR VOLUME 84.5 fL (79-99); RED BLOOD CELL COUNT(AUTO) 3.54 MIL/uL (4.00-5.50); RED CELL DISTRIBUTION WIDTH 13.2 % (11.0-15.5); WHITE BLOOD COUNT (AUTO) 9.7 K/uL (4.8-10.8)
[2019-09-30 06:47] LABS: CREATININE 0.8 mg/dL (0.5-1.5); MAGNESIUM 1.2 mg/dL (1.80-2.40); POTASSIUM 3.6 mmol/L (3.5-5.1)
[2019-09-30 08:00] VITALS: BP 117/69
[2019-09-30] MEDS: DOXYCYCLINE 100MG+NS 250ML 250 ML IV SCH (08:43)
[2019-09-30] MEDS: MAGNESIUM 2GM PREMIX 50ML 50 ML IV SCH ×2 (08:43→10:19)
[2019-09-30] MEDS: THIAMINE HCL 100 MG/ML 2ML VIAL IVP SCH (08:44)
[2019-09-30] MEDS: FAMOTIDINE/PF 20 MG/2 ML VIAL IV SCH (08:44)
[2019-09-30] MEDS: SODIUM BICARBONATE 650 MG TAB PO SCH (08:44)
[2019-09-30 12:00] VITALS: BP 119/72
[2019-09-30 13:18] LABS: ALBUMIN 2.4 g/dL (3.5-5.0); BILIRUBIN,DIRECT 0.5 mg/dL (0.0-0.3); TOTAL PROTEIN, SERUM 6.9 g/dL (6.0-8.3)
[2019-09-30] MEDS ORDERED: LEVETIRACETAM 500 MG TABLET PO SCH (14:45)
--- NOTE | 2019-09-30 18:47 | NUR ---
DISHCRAGE INSTRUCTION PROVIDED TO PATIENT. INSTRUCTIONS PER MD FOR NOT TO DRIVE UNTIL CLEARED BY HER DOCTOR , AND TO MAKE SURE TO FOLLOW UP WITH DRS ON DISCHARGE LIST ,ALONG WITH IMPORTANCE TO TAKE PRESCRIPTIONS. PATIENT VERBALIZED UNDERSTANDING
== END 2019-09-30 17:40 | disposition home or self-care (01) | DRG 871 ==
LOC: EDH 11:52 → EDHIP 11:53 → 2CH 19:14 → DAHIP 09-24 07:37 → 3CH 09-26 23:36
PROVIDERS: ADMIT Family Medicine; ATTEND Family Medicine
DX: A41.9 Sepsis, unspecified organism (principal); J18.9 Pneumonia, unspecified organism; G04.90 Encephalitis and encephalomyelitis, unspecified; G92 Toxic encephalopathy; N00.9 Acute nephritic syndrome with unspecified morphologic changes; E87.1 Hypo-osmolality and hyponatremia; G40.89 Other seizures; N17.9 Acute kidney failure, unspecified; E46 Unspecified protein-calorie malnutrition; E87.2 Acidosis; A79.9 Rickettsiosis, unspecified; D69.6 Thrombocytopenia, unspecified; D64.9 Anemia, unspecified; D75.89 Other specified diseases of blood and blood-forming organs; E66.9 Obesity, unspecified; E83.42 Hypomagnesemia; E86.0 Dehydration; N18.9 Chronic kidney disease, unspecified; R53.81 Other malaise; Z20.828 Contact with and (suspected) exposure to other viral communicable diseases; Z68.30 Body mass index [BMI] 30.0-30.9, adult; Z88.8 Allergy status to other drugs, medicaments and biological substances
CPT/HCPCS: 36415; 36600; 70450; 70551; 71045; 71250; 74176; 80048; 80053; 80074; 80076; 80305; 81001; 82140; 82550; 82728; 82803; 82948; 82977; 83520; 83605; 83615; 83690; 83735; 83883; 83935; 84100; 84132; 84145; 84156; 84166; 84300; 84550; 84703; 85025; 85027; 85378; 85384; 85610; 85730; 86038; 86140; 86160; 86215; 86235; 86255; 86325; 86334; 86757; 86850; 86900; 86901; 87040; 87088; 87633; 87635; 87901; 92610; 97039; G0378; G0480; J0133; J0456; J0696; J1953; J2405; J3370; J3411; J3475; J3490; J7030; J7040